=== PATIENT | female | born 1960 | race Caucasian/White ===

== ENCOUNTER 2017-09-03 15:09 | Emergency (ER) | payer OTHER ==
[~2017-09-03] VITALS: Ht 172.7 cm; Wt 65.3 kg
[~2017-09-03 15:09] MED LIST: ALPRAZOLAM0.5 M3 PO; ASACOL HD800 MG PO; LORAZEPAM1 MG PO; TRAZODONE50 MG; ZITHROMAX Z PA250 MG PO; ZOFRAN ODT4 MG PO
[2017-09-03 15:19] VITALS: BP 122/78
[2017-09-03] MEDS ORDERED: KEFLEX500 M1 PO (18:29)
[2017-09-03] MEDS ORDERED: NORCO 5-325 TA1 EACH PO (18:29)
--- NOTE | 2017-09-03 18:29 | ED HAND/WRIST INJURY COMPLAINT ---
History of Present Illness General Chief Complaint: Laceration Procedure Stated Complaint: RT HAND LAC Source: patient Exam Limitations: no limitations Vital Signs & Intake/Output Vital Signs & Intake/Output Vital Signs Date Time Temp Pulse Resp B/P B/P Pulse O2 O2 Flow FiO2 Mean Ox Delivery Rate 09/03 1519 97.2 83 18 122/78 96 Room Air ED Intake and Output 09/04 0000 09/03 1200 Intake Total Output Total Balance Patient 144 lb Weight Weight Estimated Measurement Method Allergies Coded Allergies: ciprofloxacin (From CIPRO) (Severe, THROAT CLOSES 10/23/15) Sulfa (Sulfonamide Antibiotics) (Mild, RASH 10/23/15) Reconcile Medications Alprazolam 0.5 MG TAB 1 TAB PO PRN ANXIETY (Reported) Azithromycin (Zithromax Z Pack) 250 MG TAB 1 TAB PO DAILY PNEUMONIA TAKE 2 PILLS ON DAY 1 AND THEN 1 PILL DAILY FOR 4 MORE DAYS Cephalexin (Keflex) 500 MG CAPSULE 1 CAP PO TID CELLULITIS Hydrocodone/Acetaminophen ([place] 5-325 Tablet) 5 MG-325 MG TABLET 1 TAB PO Q4- 6 PRN PRN PAIN Lorazepam 1 MG TABLET 1-2 TAB PO QPM SLEEP (Reported) Mesalamine (Asacol Hd) 800 MG TABLET.DR 1 TAB PO TID ULCERATIVE COLITIS ( Reported) Ondansetron (Zofran Odt) 4 MG TAB.RAPDIS 1 TAB PO Q6P PRN NAUSEA TRAZODONE HCL (Trazodone HCl) (Unknown Strength) TABLET (Unknown Dose) UNKNOWN (Reported) Triage Note: PT TO ER C/C RIGHT 5TH FINGER AVULSION FROM MANDOLIN SLICER. UNSURE OF DATE OF LAST TETANUS INJ. PRESSURE DRESSING APPLIED IN TRIAGE. Triage Nurses Notes Reviewed? yes Occurred: just prior to arrival Duration: hour(s): (2), constant, continues in ED Timing: single episode today Injury Environment: home Severity: mild, moderate Severity Numbers: 8 Pain/Injury Location: Right: 5th finger. Context: laceration Method of Injury: laceration No Modifying Factors: none LMP (ages 10-50): post menopausal : No Patient currently breastfeeds: No HPI: 57 over the nail past medical history of ulcerative colitis but since her evaluation of a laceration to her right fifth digit. Patient states that she was using a mandolin slicer earlier today which excellently rubbed her finger against the slicer causing an avulsion injury. She states that she removed some of the skin on the lateral aspect of the fifth digit. She states was a large amount of bleeding. The area is very painful she rates as an 8 out of 10. She is able to move the finger without issues. No numbness or tingling no other injuries. She is unsure of her last tetanus shot. (Rene Pena) Past History Travel History Traveled to [place] past 21 day No Medical History Any Pertinent Medical History? see below for history Gastrointestinal: ulcerative colitis (IN REMISSION) Renal: KIDNEY STONES Psychiatric: insomnia Surgical History Surgical History: TONSILLECTOMY MYOMECTOMY Psychosocial History What is your primary language Ukrainian Tobacco Use: Quit >30 days ago Family History Hx Contributory? No (Rene Pena) Review of Systems Review of Systems Constitutional: Reports: no symptoms. EENTM: Reports: no symptoms. Respiratory: Reports: no symptoms. Cardiovascular: Reports: no symptoms. GI: Reports: no symptoms. Genitourinary: Reports: no symptoms. Musculoskeletal: Reports: no symptoms. Skin: Reports: see HPI (AVULSION). Neurological/Psychological: Reports: no symptoms. Hematologic/Endocrine: Reports: no symptoms. Immunologic/Allergic: Reports: no symptoms. All Other Systems: Reviewed and Negative (Rene Pena) Physical Exam Physical Exam General Appearance: well developed/nourished, no apparent distress, alert, awake Head: atraumatic, normal appearance Eyes: Bilateral: normal appearance, EOMI. Ears, Nose, Throat: hearing grossly normal Neck: normal inspection, supple, full range of motion Cardiovascular/Respiratory: no respiratory distress Back: normal inspection, normal range of motion Elbow Left: normal range of motion, normal inspection Elbow Right: normal range of motion, normal inspection Forearm Left: normal range of motion, normal inspection Forearm Right: normal range of motion, normal inspection Wrist Left: normal range of motion, normal inspection Wrist Right: normal range of motion, normal inspection Hand Left: normal inspection, normal range of motion Hand Right: lacerations, evidence of injury, 5th finger, THERE IS A 2 CM AVULSION ON THE LATERAL ASPECT THE DISTAL SEGMENT OF THE FIFTH DIGIT. fULL RANGE OF MOTION IS INTACT NO DAMAGE TO THE NAIL ACTIVE BLEEDING IS PRESENT. SUBCUTANEOUS TISSUE IS EXPOSED. nO BONE EXPOSED. nEUROVASCULAR SUPPLY INTACT Neurologic/Tendon: normal sensation, normal motor functions, normal tendon functions, responds to pain, no evidence tendon injury, no pulse deficit Skin: intact, normal color, warm/dry (Rene Pena) Progress Differential Diagnosis: contusion, fracture, LACERATION, SKIN AVULSION Plan of Care: Current Medications Sig/Rena Start time Last Medication Dose Stop Time Status Admin Tetanus/Diphtheria 0.5 ML ONCE ONE 09/03 1829 AC Toxoids Adsorbed 09/03 1830 (Decavac) Patient seen and evaluated. She has an avulsion injury to the right fifth digit. The area was flushed with sterile water Betadine applied. Surgicel was applied to stop bleeding. Sterile dressing applied. Tetanus updated. Discussed wound care procedures in detail. Tylenol ibuprofen as needed for pain and [place] for severe pain. Patient recovered with cephalexin. Follow-up for a wound check in 2 or 3 days. Discussed return precautions patient is nontoxic- appearing and agrees the plan. (Rene Pena) Departure Departure Disposition: HOME OR SELF CARE Condition: Stable Clinical Impression Primary Impression: Avulsion of skin of finger Qualifiers: Encounter type: initial encounter Qualified Code: S61.209A - Unspecified open wound of unspecified finger without damage to nail, initial encounter Referrals: Carleen WAITE,Sasha Raza (PCP/Family) Additional Instructions: REST, AVOID EXCESSIVE MOVEMENT OF THE FINGER. KEEP THE AREA CLEAN AND DRY. CHANGE DRESSING ONCE DAILY. TAKE ANTIBIOTICS DIRETCED FOR FULL COURSE. TYLENOL/IBUPROFEN NEEDED FOR PAIN. NORCO FOR SEVERE PAIN ONLY. LOOK OUT FOR SIGNS OF INFECTION, YOU SHOULD HAVE A WOUND CHECK IN 3-4 DAYS. RETURN TO THE ED WITH ANY CONCERNS. Departure Forms: Customer Survey General Discharge Information Prescriptions: Current Visit Scripts Cephalexin (Keflex) 1 CAP PO TID #21 CAP Hydrocodone/Acetaminophen ([place] 5-325 Tablet) 1 TAB PO Q4-6 PRN PRN PAIN #6 TAB (Rene Pena) PA/CLINICAL LAB CLERK Co-Sign Statement Statement: ED Attending supervision documentation- [] I saw and evaluated the patient. I have also reviewed all the pertinent lab results and diagnostic results. I agree with the findings and the plan of care as documented in the PA's/CLINICAL LAB CLERK's documentation. [X] I have reviewed the ED Record and agree with the PA's/CLINICAL LAB CLERK's documentation. [] Additions or exceptions (if any) to the PAs/CLINICAL LAB CLERK's note and plan are summarized below: [] (Nixon WAITE,Maribel)
== END 2017-09-03 18:55 ==
LOC: ERH 15:09
DX: S61.216A Laceration without foreign body of right little finger without damage to nail, initial encounter (principal); W26.8XXA Contact with other sharp object(s), not elsewhere classified, initial encounter; Y93.G1 Activity, food preparation and clean up; Y92.009 Unspecified place in unspecified non-institutional (private) residence as the place of occurrence of the external cause
CPT/HCPCS: 90471; 90714

== ENCOUNTER 2017-09-07 20:03 | Emergency (ER) | payer OTHER ==
[~2017-09-07] VITALS: Ht 172.7 cm; Wt 64.4 kg
[~2017-09-07 20:03] MED LIST changes: +KEFLEX500 M1 PO; +NORCO 5-325 TA1 EACH PO
[2017-09-07 20:11] VITALS: BP 142/83
--- NOTE | 2017-09-07 20:46 | ED GENERAL ADULT ---
See Addendum History of Present Illness General Chief Complaint: Suture Removal/Wound Recheck Stated Complaint: "I NEED TO GET MY WOUND CHECK" Source: patient Exam Limitations: no limitations Vital Signs & Intake/Output Vital Signs & Intake/Output Vital Signs Date Time Temp Pulse Resp B/P B/P Pulse O2 O2 Flow FiO2 Mean Ox Delivery Rate 09/07 2010 97.2 76 16 142/83 98 Room Air Allergies Coded Allergies: ciprofloxacin (From CIPRO) (Severe, THROAT CLOSES 10/23/15) latex (Intermediate, RASH 09/07/17) Sulfa (Sulfonamide Antibiotics) (Mild, RASH 10/23/15) Reconcile Medications Alprazolam 0.5 MG TAB 1 TAB PO PRN ANXIETY (Reported) Azithromycin (Zithromax Z Pack) 250 MG TAB 1 TAB PO DAILY PNEUMONIA TAKE 2 PILLS ON DAY 1 AND THEN 1 PILL DAILY FOR 4 MORE DAYS Cephalexin (Keflex) 500 MG CAPSULE 1 CAP PO TID CELLULITIS Hydrocodone/Acetaminophen ([place] 5-325 Tablet) 5 MG-325 MG TABLET 1 TAB PO Q4- 6 PRN PRN PAIN Lorazepam 1 MG TABLET 1-2 TAB PO QPM SLEEP (Reported) Mesalamine (Asacol Hd) 800 MG TABLET.DR 1 TAB PO TID ULCERATIVE COLITIS ( Reported) Ondansetron (Zofran Odt) 4 MG TAB.RAPDIS 1 TAB PO Q6P PRN NAUSEA TRAZODONE HCL (Trazodone HCl) (Unknown Strength) TABLET (Unknown Dose) UNKNOWN (Reported) Triage Note: 57F CUT FINGER ON MANDOLIN ON SATURDAY, HERE FOR RECHECK. DID NOT HAVE SUTURES OR GLUE DUE TO AVULSION TYPE INJURY. XEROFORM WAS APPLIED. SLIGHT BLEEDING DRAINAGE. NONSTICK DRSG APPLIED IN TRIAGE. ON KEFLEX. NO SURROUNDING ERYTHEMA OR FEVERS NOTED. DENIES PAIN Triage Nurses Notes Reviewed? yes HPI: Ms. Gutiérrez is a 57-year-old female who presents to the ED for a wound check of right fifth finger after cutting her finger with a Mandolin slicer. She reports she is still on antibiotics and pain meds with no increased severity of pain. She reports wound had a hard removable material that she was able to peel off. She denies any headache, nausea, vomiting, fever, chills, other injury or paresthesias. Past History Travel History Traveled to [place] past 21 day No Medical History Any Pertinent Medical History? see below for history Neurological: NONE EENT: NONE Cardiovascular: NONE Respiratory: NONE Gastrointestinal: ulcerative colitis (IN REMISSION) Hepatic: NONE Renal: KIDNEY STONES Musculoskeletal: NONE Psychiatric: insomnia Endocrine: NONE Blood Disorders: NONE Tetanus Vaccine: 09/03/17 Surgical History Surgical History: TONSILLECTOMY MYOMECTOMY Psychosocial History What is your primary language Nigerien Tobacco Use: Never used Family History Hx Contributory? Yes Review of Systems Review of Systems Constitutional: Reports: see HPI. Physical Exam Physical Exam General Appearance: well developed/nourished, no apparent distress, alert, awake , comfortable Extremities: R 5th finger healing wound with dried blood around site. No drainage, warmth or hematoma Core Measures ACS in differential dx? No CVA/TIA Diagnosis: No Sepsis Present: No Sepsis Focused Exam Completed? No Progress Differential Diagnoses I considered the following diagnoses in my evaluation of the patient: abscess, cellulitis Plan of Care: Complete antibiotics Apply wound dressing daily Initial ED EKG: none Departure Departure Disposition: HOME OR SELF CARE Condition: Stable Clinical Impression Primary Impression: Visit for wound check Referrals: Carleen WAITE,Sasha Raza (PCP/Family) Additional Instructions: Apply nonstick dressing to wound 1-2 times a day. Keep wound dry Departure Forms: Customer Survey General Discharge Information Critical Care Note Critical Care Note Critical Care Time: non-applicable
== END 2017-09-07 20:53 ==
LOC: ERH 20:03
DX: Z48.00 Encounter for change or removal of nonsurgical wound dressing (principal)